=== PATIENT | female | born 2000 | race Two or more races ===

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

== ENCOUNTER 2020-02-07 19:07 | Emergency (ER) | payer SELFPAY ==
[~2020-02-07] VITALS: Ht 154.9 cm; Wt 68.1 kg
--- NOTE | 2020-02-07 19:36 | PHYS DOC ---
Past Medical History Past Medical History: No Pertinent History Past Surgical History: No Surgical History Smoking Status: Never Smoker Alcohol Use: None Drug Use: None Adult General Chief Complaint Chief Complaint: MULTIPLE COMPLAINTS HPI HPI 19-year-old female presents to the emergency department with complaints of nausea, vomiting 3 days. She states she's had intermittent fever as well as low back pain. This pain is described in the lower back however not CVA type pain. She states her last missed her period was a prostate 3 months ago. When asked if she is able to tolerate liquids she states yes, she states she's not able to keep solid food down. She denies any diarrhea currently. Patient denies any headache or visual change, shortness of breath or cough. Nothing makes her symptoms worse, nothing makes her symptoms better. She states nothing has changed or worsened, she just wanted to be checked out. Patient denies vaginal bleeding or discharge, denies dysuria. Review of Systems Review of Systems Constitutional: intermittent fever Respiratory: Denies cough or shortness of breath [] Cardiovascular: No additional information not addressed in HPI [] GI: Denies abdominal pain, + nausea, vomiting, no bloody stools or diarrhea [] : Denies dysuria or hematuria [] Musculoskeletal: low back pain Integument: Denies rash or skin lesions [] Neurologic: Denies headache, focal weakness or sensory changes [] Endocrine: Denies polyuria or polydipsia [] All other systems were reviewed and found to be within normal limits, except as documented in this note. Current Medications Current Medications Current Medications Medications (Trade) Dose Ordered Sig/Bianca Start Time Stop Time Status Last Admin Dose Admin Sodium Chloride 1,000 ml @ 1,000 mls/hr Q1H 02/07/20 19:30 02/07/20 20:29 DC 02/07/20 19:53 1,000 MLS/HR Allergies Allergies Allergies Coded Allergies Type Severity Reaction Last Updated Verified No Known Drug Allergies 04/09/15 No Physical Exam Physical Exam Constitutional: Well developed, well nourished, no acute distress, non-toxic appearance. [] HENT: Normocephalic, atraumatic, bilateral external ears normal, oropharynx mo ist, no oral exudates, nose normal. [] Eyes: PERRLA, EOMI, conjunctiva normal, no discharge. [] Cardiovascular:Heart rate regular rhythm, no murmur [] Lungs & Thorax: Bilateral breath sounds clear to auscultation [] Abdomen: Bowel sounds normal, soft, no tenderness, no masses, no pulsatile masses. [] Skin: Warm, dry, no erythema, no rash. [] Back: low back pain, no CVA tenderness. [] Extremities: No tenderness, no edema. [] Neurologic: Alert and oriented X 3, no focal deficits noted. [] Psychologic: Affect normal, judgement normal, mood normal. [] Current Patient Data Vital Signs Vital Signs Date Time Temp Pulse Resp B/P (MAP) Pulse Ox O2 Delivery O2 Flow Rate FiO2 02/07/20 20:30 74 126/69 (88) 100 Room Air 02/07/20 20:00 21 02/07/20 19:16 98.0 98.0 Lab Values Laboratory Tests Test 02/07/20 19:20 02/07/20 19:25 02/07/20 19:45 Urine Collection Type Unknown Urine Color Yellow Urine Clarity Clear Urine pH 7.0 (<5.0-8.0) Urine Specific [place] 1.020 (1.000-1.030) Urine Protein 100 mg/dL (NEG-TRACE) Urine Glucose (UA) Negative mg/dL (NEG) Urine Ketones (Stick) Negative mg/dL (NEG) Urine Blood Negative (NEG) Urine Nitrite Negative (NEG) Urine Bilirubin Negative (NEG) Urine Urobilinogen Dipstick 1.0 mg/dL (0.2 mg/dL) Urine Leukocyte Esterase Small (NEG) Urine RBC 0 /HPF (0-2) Urine WBC 5-10 /HPF (0-4) Urine Squamous Epithelial Cells Many /LPF Urine Amorphous Sediment Present /HPF Urine Bacteria Few /HPF (0-FEW) Urine Mucus Slight /LPF POC Urine HCG, Qualitative Hcg positive (Negative) White Blood Count 13.2 x10^3/uL (4.0-11.0) H Red Blood Count 4.60 x10^6/uL (3.50-5.40) Hemoglobin 13.5 g/dL (12.0-15.5) Hematocrit 40.1 % (36.0-47.0) Mean Corpuscular Volume 87 fL (79-100) Mean Corpuscular Hemoglobin 29 pg (25-35) Mean Corpuscular Hemoglobin Concent 34 g/dL (31-37) Red Cell Distribution Width 14.4 % (11.5-14.5) Platelet Count 175 x10^3/uL (140-400) Neutrophils (%) (Auto) 68 % (31-73) Lymphocytes (%) (Auto) 21 % (24-48) L Monocytes (%) (Auto) 6 % (0-9) Eosinophils (%) (Auto) 4 % (0-3) H Basophils (%) (Auto) 1 % (0-3) Neutrophils # (Auto) 9.1 x10^3/uL (1.8-7.7) H Lymphocytes # (Auto) 2.8 x10^3/uL (1.0-4.8) Monocytes # (Auto) 0.8 x10^3/uL (0.0-1.1) Eosinophils # (Auto) 0.5 x10^3/uL (0.0-0.7) Basophils # (Auto) 0.1 x10^3/uL (0.0-0.2) Maternal Serum HCG Beta Subunit 46329 mIU/mL (0-5) H Sodium Level 137 mmol/L (136-145) Potassium Level 3.9 mmol/L (3.5-5.1) Chloride Level 103 mmol/L (98-107) Carbon Dioxide Level 25 mmol/L (21-32) Anion Gap 9 (6-14) Blood Urea Nitrogen 10 mg/dL (7-20) Creatinine 0.7 mg/dL (0.6-1.0) Estimated GFR (Cockcroft-Gault) 105.6 BUN/Creatinine Ratio 14 (6-20) Glucose Level 85 mg/dL (70-99) Calcium Level 8.5 mg/dL (8.5-10.1) Total Bilirubin 0.2 mg/dL (0.2-1.0) Aspartate Amino Transferase (AST) 14 U/L (15-37) L Alanine Aminotransferase (ALT) 18 U/L (14-59) Alkaline Phosphatase 54 U/L (46-116) Total Protein 6.7 g/dL (6.4-8.2) Albumin 3.2 g/dL (3.4-5.0) L Albumin/Globulin Ratio 0.9 (1.0-1.7) L Laboratory Tests 02/07/20 19:45 Laboratory Tests 02/07/20 19:45 EKG EKG [] Radiology/Procedures Radiology/Procedures [] Course & Med Decision Making Course & Med Decision Making Pertinent Labs and Imaging studies reviewed. (See chart for details) []19-year-old female presents to the emergency department with complaints of nausea, vomiting 3 days. She states she's had intermittent fever as well as low back pain. This pain is described in the lower back however not CVA type pain. She states her last missed her period was a prostate 3 months ago. When asked if she is able to tolerate liquids she states yes, she states she's not able to keep solid food down. She denies any diarrhea currently. Patient denies any headache or visual change, shortness of breath or cough. Nothing makes her symptoms worse, nothing makes her symptoms better. She states nothing has changed or worsened, she just wanted to be checked out. Patient denies vaginal bleeding or discharge, denies dysuria. Labs reviewed + test - HCG 13103 US reviewed with IUP, c/w 11w 5 day Urine with evidence of contamination on exam NO acute findings Symptoms likely associated with Encourage po intake Anti-emetics upon discharge Establish care with OB Return precautions provided Dragon Disclaimer Dragon Disclaimer This electronic medical record was generated, in whole or in part, using a voice recognition dictation system. Departure Departure Impression: Primary Impression: IUP (intrauterine ), incidental Additional Impression: Nausea and vomiting Disposition: 01 HOME, SELF-CARE Condition: IMPROVED Referrals: NO PCP (PCP) Patient Instructions: Abdominal Pain During , [id number], Nausea and Vomiting, [id number] Additional Instructions: Recommend establishing care with [employer] Zofran for nausea as needed IUP identified at 11 weeks and 5 days Return to the ER with vaginal bleeding, vaginal discharge, abdominal pain Encourage fluid intake even if unable to keep solid food down - drink plenty of liquids Urine shows no infection Scripts Ondansetron Hcl (ZOFRAN) 4 Mg Tablet 1 TAB PO PRN Q6-8HRS for nausea, #12 TAB Prov: JOSELITO LOMBARDI MD 02/07/20 Problem Qualifiers Additional Impression: Nausea and vomiting Vomiting type: unspecified Vomiting Intractability: unspecified Qualified Codes: R11.2 - Nausea with vomiting, unspecified JOSELITO LOMBARDI MD Feb 07, 2020 19:36
[2020-02-07 19:39] LABS: BILIRUBIN,URINE NEGATIVE (NEG); CLARITY,URINE CLEAR; COLOR,URINE YELLOW; NITRITE,URINE NEGATIVE (NEG); PROTEIN,URINE 100 mg/dL (NEG-TRACE)
[2020-02-07 19:48] LABS: SQUAMOUS EPITHELIAL CELL,UR MANY /LPF
[2020-02-07 19:49] LABS: AMORPHOUS SEDIMENT,UR PRESENT /HPF; BACTERIA,URINE FEW /HPF (0-FEW); RBC,URINE 0 /HPF (0-2)
[2020-02-07] MEDS: IV NORMAL SALINE 1000ML BAG 1,000 ML IV SCH (19:53)
[2020-02-07 19:56] LABS: BASO # 0.1 x10^3/uL (0.0-0.2); BASO % 1 % (0-3); EOS # 0.5 x10^3/uL (0.0-0.7); EOS % 4 % (0-3); HEMATOCRIT 40.1 % (36.0-47.0); HEMOGLOBIN 13.5 g/dL (12.0-15.5); LYMPH # 2.8 x10^3/uL (1.0-4.8); LYMPH % 21 % (24-48); MEAN CORPUSCULAR HEMOGLOBIN 29 pg (25-35); MEAN CORPUSCULAR HGB CONC 34 g/dL (31-37); MEAN CORPUSCULAR VOLUME 87 fL (79-100); MONO # 0.8 x10^3/uL (0.0-1.1); MONO % 6 % (0-9); NEUT # 9.1 x10^3/uL (1.8-7.7); NEUT % 68 % (31-73); PLATELET COUNT 175 x10^3/uL (140-400); RED CELL DISTRIBUTION WIDTH 14.4 % (11.5-14.5); WHITE BLOOD COUNT 13.2 x10^3/uL (4.0-11.0)
[2020-02-07 20:04] LABS: CALCIUM 8.5 mg/dL (8.5-10.1); CREATININE 0.7 mg/dL (0.6-1.0); GFR 105.6; POTASSIUM 3.9 mmol/L (3.5-5.1)
[2020-02-07 20:10] LABS: ALBUMIN 3.2 g/dL (3.4-5.0); ALBUMIN/GLOBULIN RATIO 0.9 (1.0-1.7); TOTAL BILIRUBIN 0.2 mg/dL (0.2-1.0); TOTAL PROTEIN 6.7 g/dL (6.4-8.2)
--- NOTE | 2020-02-07 21:10 | RAD ---
Study: US OB TRANSVAG DATE: 02/07/2020 7:45 PM INDICATION: Unknown gestational age. Back pain. COMPARISON: None recently. TECHNIQUE: Transabdominal ultrasonography of the pelvis was performed. Color Doppler and duplex were utilized as appropriate. FINDINGS: Uterus measures 15 x 9.8 x 7.7 cm. Intrauterine gestational sac containing a pole with a crown-rump length averaging 5 cm for an estimated gestational age of 11 weeks 5 days. heart rate of 169 bpm. The left ovary measures 3.3 x 1.9 x 1.8 cm with normal Doppler flow. The right ovary was not able to be visualized. No free pelvic fluid. IMPRESSION: Single live intrauterine gestation with an estimated gestational age by ultrasound of 11 weeks 5 days. No complicating features. The left ovary is unremarkable. The right ovary was not able to be visualized. Electronically signed by: DAINA LANTIGUA MD (02/07/2020 9:07 PM) [id number]
[2020-02-07] MEDS ORDERED: ONDA4TAB7 PO (21:11)
[2020-02-07 21:30] VITALS: BP 106/76
== END 2020-02-07 21:55 | disposition home or self-care (01) ==
LOC: ER 19:07
DX: O21.9 Vomiting of pregnancy, unspecified (principal); R50.9 Fever, unspecified; M54.5 Low back pain
CPT/HCPCS: 36415; 76817; 80053; 81001; 81025; 84702; 85025; 87086; 96360; 99285; J7030